=== PATIENT | male | born 1995 | race Caucasian/White ===

== ENCOUNTER 2021-06-19 08:38 | Emergency (ER) | payer OTHER ==
[2021-06-19] MEDS ORDERED: IBUPROFEN600 MG PO (09:29)
== END 2021-06-19 09:37 | disposition home or self-care (01) ==
LOC: ER1 08:38
DX: S63.501A Unspecified sprain of right wrist, initial encounter (principal); F17.210 Nicotine dependence, cigarettes, uncomplicated; W01.0XXA Fall on same level from slipping, tripping and stumbling without subsequent striking against object, initial encounter
CPT/HCPCS: 29125; 73110; 73130; 99283